=== PATIENT | female | born 2005 | race Hispanic/Latino ===

== ENCOUNTER 2023-04-05 11:28 | Emergency (ER) | payer SELFPAY ==
[2023-04-05 11:55] LABS: Specific Gravity 1.027 (1.005-1.030)
[2023-04-05] MEDS ORDERED: NA CHLORIDE 0.9% 1,000 ML ONE (12:03)
[2023-04-05] MEDS ORDERED: KETOROLAC 30 MG/ML INJ ONE (12:03)
[2023-04-05 12:04] LABS: Absolute Lymphocytes (CBC) 1.8 K/uL (0.7-4.9); Hematocrit 39.8 % (36.0-45.0); Lymphocytes % 19.1 % (15.3-44.8); MCV 85.9 fL (80-100); MPV 9.1 fL (7.6-11.3); RBC Red Blood Cell Count 4.64 M/uL (3.86-4.86)
[2023-04-05 12:08] LABS: Specific Gravity 1.027 (1.005-1.030); Urine Bacteria None Seen /HPF (<20); Urine Bilirubin NEGATIVE (Negative); Urine Blood 3+ (OVER) (Negative); Urine Clarity Extremely Turbid (Clear); Urine Color Yellow (Yellow); Urine Glucose NEGATIVE (Negative); Urine Mucus 4+ /HPF (None Seen); Urine Protein 1+ (Negative); Urine RBC >50 /HPF (None Seen); Urine Urobilinogen Normal (Normal); Urine pH 5.5 (5.0-7.0)
[2023-04-05 12:27] LABS: Albumin 4.2 g/dL (3.4-5.0); Bilirubin Total 0.6 mg/dL (0.2-1.0); Potassium 3.6 mEq/L (3.5-5.1); Protein, Total 7.5 g/dL (6.4-8.2)
--- NOTE | 2023-04-05 13:35 | RAD REPORT ---
EXAM DESCRIPTION: CT - Stone Protocol - 04/05/2023 1:13 pm CLINICAL HISTORY: Flank pain. RLQ PAIN COMPARISON: No comparisons TECHNIQUE: Axial images were obtained without oral or IV contrast. Lack of contrast limits solid org an and vascular assessment. The [id number] spans the entirety of the system partially obscuring uppermost abdomen and lung bases. Coronal reformatted images were obtained and reviewed. All CT scans are performed using dose optimization technique as appropriate and may include automated exposure control or mA/KV adjustment according to patient size. FINDINGS: The lower lung garcia are clear. Imaged portions of the liver and spleen show no suspicious findings on non-contrast imaging. The panc reas and adrenal glands are normal. No pathologic lymphadenopathy in the abdomen or pelvis. No urinary tract stones or obstructive uropathy. No bowel obstruction, free air, free fluid or abscess. Normal appendix noted. No significant bony abnormality. IMPRESSION: No urinary tract stones or obstructive uropathy.
--- NOTE | 2023-04-05 14:02 | EDPHYS ---
[facility] Name: Mercedes Ocampo Age: 17 yrs Sex: Female : 2005 Arrival Date: 04/05/2023 Time: 11:28 Bed 12 Private MD: ED Physician Letitia Garibay HPI: 04/05 12:12 This 17 yrs old Female presents to ER via Ambulatory with complaints of snw Abdominal Cramping. 12:12 The patient presents with abdominal pain in the lower abdomen. Onset: The snw symptoms/episode began/occurred acutely. The symptoms do not radiate. Associated signs and symptoms: Pertinent positives: nausea. The symptoms are described as crampy. Severity of pain: At its worst the pain was moderate severe. The patient has not experienced similar symptoms in the past. It is unknown whether or not the patient has recently seen a physician. 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 - Social history:: Smoking status: Patient denies any tobacco usage or history of. ROS: 12:12 Constitutional: Negative for fever, chills, and weight loss, Eyes: Negative for injury, snw pain, redness, and discharge, ENT: Negative for injury, pain, and discharge, Neck: Negative for injury, pain, and swelling, Cardiovascular: Negative for chest pain, palpitations, and edema, Respiratory: Negative for shortness of breath, cough, wheezing, and pleuritic chest pain, Back: Negative for injury and pain, : Negative for injury, bleeding, discharge, and swelling, MS/Extremity: Negative for injury and deformity, Skin: Negative for injury, rash, and discoloration, Neuro: Negative for headache, weakness, numbness, tingling, and seizure, Psych: Negative for depression, anxiety, suicide ideation, homicidal ideation, and hallucinations. 12:12 Abdomen/GI: Positive for abdominal pain, nausea, abdominal cramps, of the right lower quadrant. Exam: 12:11 Constitutional: This is a well developed, well nourished patient who is awake, alert, snw tearful second to abd pain Head/Face: Normocephalic, atraumatic. Eyes: Pupils equal round and reactive to light, extra-ocular motions intact. Lids and lashes normal. Conjunctiva and sclera are non-icteric and not injected. Cornea within normal limits. Periorbital areas with no swelling, redness, or edema. ENT: Nares patent. No nasal discharge, no septal abnormalities noted. Tympanic membranes are normal and external auditory canals are clear. Oropharynx with no redness, swelling, or masses, exudates, or evidence of obstruction, uvula midline. Mucous membranes moist. Neck: Trachea midline, no thyromegaly or masses palpated, and no cervical lymphadenopathy. Supple, full range of motion without nuchal rigidity, or vertebral point tenderness. No Meningismus. Chest/axilla: Normal chest wall appearance and motion. Nontender with no deformity. No lesions are appreciated. Cardiovascular: Regular rate and rhythm with a normal S1 and S2. No gallops, murmurs, or rubs. Normal PMI, no JVD. No pulse deficits. Respiratory: Lungs have equal breath sounds bilaterally, clear to auscultation and percussion. No rales, rhonchi or wheezes noted. No increased work of breathing, no retractions or nasal flaring. Back: No spinal tenderness. No costovertebral tenderness. Full range of motion. Skin: Warm, dry with normal turgor. Normal color with no rashes, no lesions, and no evidence of cellulitis. MS/ Extremity: Pulses equal, no cyanosis. Neurovascular intact. Full, normal range of motion. Neuro: Awake and alert, GCS 15, oriented to person, place, time, and situation. Cranial nerves II-XII grossly intact. Motor strength 5/5 in all extremities. Sensory grossly intact. Cerebellar exam normal. Normal gait. Psych: Awake, alert, with orientation to person, place and time. Behavior, mood, and affect are within normal limits. 12:11 Abdomen/GI: Inspection: abdomen appears normal, Bowel sounds: normal, Palpation: moderate abdominal tenderness, in the right lower quadrant. Vital Signs: 11:42 BP 128 / 69; Pulse 90; Resp 18; Temp 97.9(TE); Pulse Ox 100% on R/A; Weight 63.5 kg; cm10 Height 5 ft. 1 in. ; Pain 8/10; 12:55 BP 124 / 84; Pulse 88; Resp 18; Pulse Ox 99% ; os 11:42 Body Mass Index 26.45 (63.50 kg, 154.94 cm) cm10 11:42 Pain Scale: Adult cm10 MDM: 11:41 Patient medically screened. snw 14:03 Differential diagnosis: appendicitis, bowel obstruction, diverticulitis, gastritis, snw non-specific abd pain, urinary tract infection. Data reviewed: vital signs, nurses notes, lab test result(s), radiologic studies. I considered the following discharge prescriptions or medication management in the emergency department Medications were administered in the Emergency Department. See MAR. Counseling: I had a detailed discussion with the patient and/or guardian regarding: the historical points, exam findings, and any diagnostic results supporting the discharge/admit diagnosis, the presence of at least one elevated blood pressure reading (>120/80) during this emergency department visit, lab results, radiology results, the need for outpatient follow up, for definitive care, to return to the emergency department if symptoms worsen or persist or if there are any questions or concerns that arise at home. Response to treatment: the patient's symptoms have mildly improved after treatment. Special discussion: Based on the history and exam findings, there is no indication for further emergent testing or inpatient evaluation. I discussed with the patient/guardian the need to see the primary care provider for further evaluation of the symptoms. 04/05 11:31 Order name: Urine W/Microscopic (UAM); Complete Time: 12:09 snw 04/05 11:31 Order name: PREGU; Complete Time: 12:01 snw 04/05 11:49 Order name: CBC with Diff; Complete Time: 12:09 snw 04/05 11:49 Order name: CMP; Complete Time: 12:27 snw 04/05 11:50 Order name: CT Stone Protocol; Complete Time: 13:51 snw Administered Medications: 14:22 Discontinued: NS 0.9% IV 1000 ml IV at 1 bolus Per protocol; 1000 mL bolus os 12:01 Drug: NS 0.9% IV 1000 ml Route: IV; Rate: 1 bolus; Site: right antecubital; os 13:04 Follow up: Response: No adverse reaction os 14:22 Follow up: Response: No adverse reaction os 12:54 Drug: Ketorolac IVP 30 mg Route: IVP; Site: right antecubital; os 13:03 Follow up: Response: No adverse reaction os 14:22 Follow up: Response: No adverse reaction; Pain is decreased os Disposition Summary: 04/05/23 14:02 Discharge Ordered Location: Home snw Condition: Stable snw Diagnosis - Lower abdominal pain, unspecified snw - Volume depletion, unspecified snw Followup: snw - With: Private Physician - When: 2 - 3 days - Reason: Recheck today's complaints, Continuance of care, Re-evaluation by your physician Followup: snw - With: Emergency Department - When: As needed - Reason: Worsening of condition Discharge Instructions: - Discharge Summary Sheet snw - Abdominal Pain, Adult snw - Muscle Cramps and Spasms snw Forms: - Medication Reconciliation Form snw - Thank You Letter snw - Antibiotic Education snw - Prescription Opioid Use snw Prescriptions: - Diclofenac Sodium 75 mg Oral Tablet Sustained Release - take 1 tablet by ORAL route 2 times per day; 30 tablet; Refills: 0, Product snw Selection Permitted - orphenadrine citrate 100 mg Oral Tablet Sustained Release - take 1 tablet by ORAL route 2 times per day As needed; 20 tablet; Refills: 0, snw Product Selection Permitted Signatures: Dispatcher [employer] Cassidy Osborne FNP-Rain EARLY CHILDHOOD TEACHER ASSISTANT-Csnw Miguel Angel Tucker, RN RN os Heavenly Salinas RN RN cm10
--- NOTE | 2023-04-05 14:02 | ER ---
Nurse's Notes [facility] Name: Mercedes Ocampo Age: 17 yrs Sex: Female : 2005 Arrival Date: 04/05/2023 Time: 11:28 Bed 12 Private MD: Diagnosis: Lower abdominal pain, unspecified;Volume depletion, unspecified Presentation: 04/05 11:36 Chief complaint: Patient states: Pt reports abdominal cramping onset today. Pt reports cm10 that she is on her period and hasn't had cramps like this before. Pt denies any urinary symptoms. Coronavirus screen: Vaccine status: Patient reports receiving the 2nd dose of the covid vaccine. Client denies travel out of the [place] in the last 14 days. At this time, the client does not indicate any symptoms associated with coronavirus-19. Ebola Screen: No symptoms or risks identified at this time. 11:36 Method Of Arrival: Ambulatory cm10 11:42 Initial Sepsis Screen: Does the patient meet any 2 criteria? No. Patient's initial cm10 sepsis screen is negative. Does the patient have a suspected source of infection? No. Patient's initial sepsis screen is negative. Risk Assessment: Do you want to hurt yourself or someone else? Patient reports no desire to harm self or others. Onset of symptoms was April 05, 2023. 11:42 Acuity: KRISTAL 3 cm10 Triage Assessment: 11:47 General: Appears in no apparent distress. Behavior is calm, cooperative. Pain: cm10 Complains of pain in abdomen Pain currently is 8 out of 10 on a pain scale. Quality of pain is described as crampy. Neuro: No deficits noted. Level of Consciousness is awake, alert, obeys commands, Oriented to person, place, time, situation. Cardiovascular: No deficits noted. Capillary refill < 3 seconds. GI: Reports lower abdominal pain, cramping, nausea. : No deficits noted. 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 - Social history:: Smoking status: Patient denies any tobacco usage or history of. Screenin:01 [facility] ED Fall Risk Assessment (Adult) History of falling in the last 3 months, os including since admission No falls in past 3 months (0 pts) Confusion or Disorientation No (0 pts) Intoxicated or Sedated No (0 pts) Impaired Gait No (0 pts) Mobility Assist Device Used No (0 pt) Altered Elimination No (0 pt) Score/Fall Risk Level 0 - 2 = Low Risk Oriented to surroundings, Maintained a safe environment. Abuse screen: Denies threats or abuse. Nutritional screening: No deficits noted. Tuberculosis screening: No symptoms or risk factors identified. Assessment: 11:57 Reassessment: No changes from previously documented assessment. Patient and/or family ll1 updated on plan of care and expected duration. Pain level reassessed. Patient is alert, oriented x 3, equal unlabored respirations, skin warm/dry/pink. 12:02 Neuro: No deficits noted. Cardiovascular: No deficits noted. Respiratory: No deficits os noted. GI: Bowel sounds present X 4 quads. Abd is soft Abdomen is tender to palpation in abdomen diffusely. Right lower quadrant. : No deficits noted. 13:02 Pain: Complains of pain in right lower quadrant Pain currently is 0 out of 10 on a pain os scale. Quality of pain is described as Pain began. Vital Signs: 11:42 BP 128 / 69; Pulse 90; Resp 18; Temp 97.9(TE); Pulse Ox 100% on R/A; Weight 63.5 kg; cm10 Height 5 ft. 1 in. ; Pain 8/10; 12:55 BP 124 / 84; Pulse 88; Resp 18; Pulse Ox 99% ; os 11:42 Body Mass Index 26.45 (63.50 kg, 154.94 cm) cm10 11:42 Pain Scale: Adult cm10 ED Course: 11:30 Patient arrived in ED. im 11:31 Cassidy Lee FNP-C is PHCP. snw 11:31 Letitia Garibay MD is Attending Physician. snw 11:42 Triage completed. cm10 11:43 Arm band placed on Patient placed in an exam room, on a stretcher. Urine obtained. cm10 11:44 PREGU Sent. aa5 11:44 Urine W/Microscopic (UAM) Sent. aa5 11:45 Sotiri, Orest, RN is Primary Nurse. os 11:55 Inserted saline lock: 22 gauge in right antecubital area, using aseptic technique. ll1 Blood collected. 12:00 CBC with Diff Sent. ll1 12:00 CMP Sent. ll1 12:02 No provider procedures requiring assistance completed. os 12:03 Patient has correct armband on for positive identification. Bed in low position. Call os light in reach. Side rails up X 1. Side rails up X2. 13:15 CT Stone Protocol In Process Unspecified. EDMS 14:23 IV discontinued, intact, bleeding controlled, No redness/swelling at site. Pressure os dressing applied. Administered Medications: 14:22 Discontinued: NS 0.9% IV 1000 ml IV at 1 bolus Per protocol; 1000 mL bolus os 12:01 Drug: NS 0.9% IV 1000 ml Route: IV; Rate: 1 bolus; Site: right antecubital; os 13:04 Follow up: Response: No adverse reaction os 14:22 Follow up: Response: No adverse reaction os 12:54 Drug: Ketorolac IVP 30 mg Route: IVP; Site: right antecubital; os 13:03 Follow up: Response: No adverse reaction os 14:22 Follow up: Response: No adverse reaction; Pain is decreased os Medication: 12:04 VIS not applicable for this client. os Outcome: 14:02 Discharge ordered by . yulissa 14:22 Discharged to home ambulatory. os 14:22 Condition: improved 14:22 Discharge instructions given to patient, family. 14:23 Patient left the ED. os Signatures: Dispatcher [employer] EDCassidy Ba, JEREMY-C POWDER HAND-Alexisw Dee Reynoso RN RN aa5 Josie Graves RN RN ll1 Miguel Angel Tucker, RN RN os Ngoc Tripathi Clarissa, RN RN cm10
[2023-04-05 14:42] VITALS: BP 124/84; TEMP 97.9; O2SAT 99
== END 2023-04-05 14:23 | disposition home or self-care (01) ==
LOC: ER 11:28
DX: R10.31 Right lower quadrant pain (principal); E86.9 Volume depletion, unspecified; R11.0 Nausea
CPT/HCPCS: 36415; 74176; 76377; 80053; 81001; 81025; 85025; 96374; 99284; J7030